=== PATIENT | male | born 1940 | race Caucasian/White ===

== ENCOUNTER 2017-02-14 12:54 | Inpatient (IN) | payer MEDICARE ==
[2017-02-14] MEDS ORDERED: SODIUM CHLORIDE 0.9% 1,000 ML IV STA (13:57)
[2017-02-14] MEDS ORDERED: ACETAMINOPHEN TAB 500 MG TAB PO STA (14:27)
[2017-02-14] MEDS ORDERED: IBUPROFEN 600 MG TAB PO STA (14:27)
--- NOTE | 2017-02-14 14:27 | ED ---
General Adult HPI - General Chief complaint: Weakness Stated complaint: WEAKNESS Time Seen by Provider: 02/14/17 13:04 Source: patient, RN notes reviewed, old records reviewed Mode of arrival: EMS Limitations: no limitations - History of Present Illness Initial comments: This is a 76-year-old male here for evaluation of weakness. Patient going to multiple different tests for evaluation of neurological studies including try to rule out Parkinson's and different brain abnormalities. Vision did have a little weakness yesterday but today with diffuse generalized weakness unable to get out of bed. - Related Data Home Medications Medication Instructions Recorded Confirmed Atorvastatin [Lipitor] 40 mg PO HS 10/10/16 02/14/17 Cholecalciferol [Vitamin D3] 2,000 unit PO DAILY 10/10/16 02/14/17 Levothyroxine Sodium [Synthroid] 150 mcg PO DAILY 10/10/16 02/14/17 [place] Port-3 Fatty Acids/Fish Oil [Fish 1 cap PO DAILY 10/10/16 02/14/17 Oil 1,000 mg Softgel] Tamsulosin HCl [Flomax] 0.4 mg PO DAILY 10/10/16 02/14/17 traZODone HCL 150 mg PO HS 10/10/16 02/14/17 Carbidopa/Levodopa [Sinemet 25-100 1 tab PO TID 02/14/17 02/14/17 mg] Insulin Aspart [NovoLOG] 8 unit SQ DAILY 02/14/17 02/14/17 Insulin Aspart [NovoLOG] 10 unit SQ BID 02/14/17 02/14/17 Insulin Degludec [Tresiba 32 unit SQ HS 02/14/17 02/14/17 Flextouch U-200] LORazepam [Ativan] 1 mg PO DAILY PRN 02/14/17 02/14/17 Losartan [Cozaar] 25 mg PO DAILY 02/14/17 02/14/17 Melatonin 3 mg PO HS 02/14/17 02/14/17 Previous Rx's Medication Instructions Recorded Aspirin 325 mg PO DAILY #30 tab 10/16/16 Metoprolol Succinate (ER) [Toprol 25 mg PO DAILY #30 tab.er.24h 10/16/16 XL] Allergies Allergy/AdvReac Type Severity Reaction Status Date / Time miconazole Allergy Rash/Hives Verified 02/14/17 14:35 [From Neosporin AF] scallops Allergy Nausea & Verified 02/14/17 14:35 Vomiting & Diarrhea Review of Systems ROS Statement: Those systems with pertinent positive or pertinent negative responses have been documented in the HPI. ROS Other: All systems not noted in ROS Statement are negative. Past Medical History Past Medical History: Chest Pain / Angina, Heart Failure, Dementia, Hyperlipidemia, Hypertension Additional Past Medical History / Comment(s): [place] in 1992, bilat hip fx's, carotid stenosis(had sx), STATED HAD BOTH FLU AND PNE VACCCINE -NOT SURE OF DATES Last Myocardial Infarction Date:: 1992 History of Any Multi-Drug Resistant Organisms: None Reported Past Surgical History: Orthopedic Surgery Additional Past Surgical History / Comment(s): LT CAROTID ENDARTERECTOMY Past Anesthesia/Blood Transfusion Reactions: Previous Problems w/ Anesthesia Additional Past Anesthesia/Blood Transfusion Reaction / Comment(s): AFTER AA WAS A BIT COMBATATIVE/CONFUSED Past Psychological History: No Psychological Hx Reported Smoking Status: Former smoker Past Alcohol Use History: Occasional Additional Past Alcohol Use History / Comment(s): QUIT [id number] Past Drug Use History: None Reported - Past Family History Father Family Medical History: Myocardial Infarction ([place]) Mother Family Medical History: Dementia General Exam Limitations: no limitations General appearance: alert, in no apparent distress Head exam: Present: atraumatic, normocephalic, normal inspection Eye exam: Present: normal appearance, PERRL, EOMI. Absent: scleral icterus, conjunctival injection, periorbital swelling ENT exam: Present: normal exam, mucous membranes moist Neck exam: Present: normal inspection. Absent: tenderness, meningismus, lymphadenopathy Respiratory exam: Present: normal lung sounds bilaterally. Absent: respiratory distress, wheezes, rales, rhonchi, stridor Cardiovascular Exam: Present: regular rate, normal rhythm, normal heart sounds. Absent: systolic murmur, diastolic murmur, rubs, gallop, clicks GI/Abdominal exam: Present: soft, normal bowel sounds. Absent: distended, tenderness, guarding, rebound, rigid Extremities exam: Present: normal inspection, full ROM, normal capillary refill. Absent: tenderness, pedal edema, joint swelling, calf tenderness Back exam: Present: normal inspection Neurological exam: Present: alert, oriented X3, CN II-XII intact Psychiatric exam: Present: normal affect, normal mood Skin exam: Present: warm, dry, intact, normal color. Absent: rash Course Vital Signs 02/14/17 02/14/17 13:01 15:11 Temperature 100.3 F H Pulse Rate 85 76 Respiratory 20 18 Rate Blood Pressure 129/56 115/68 O2 Sat by Pulse 95 97 Oximetry - Reevaluation(s) Reevaluation #1: 02/14/17 15:58 Patient showing no significant clinical improvement at this point EKG Findings - EKG Comments: EKG Findings:: EKG shows sinus rhythm rate of 89, CO 182, QRS 130, QTC 457 Medical Decision Making - Medical Decision Making Serzone L yearly have evaluation of weakness, inability and related. Patient does have uterine fever, patient be admitted for fever control, rehydration and treatment of urinary tract infection - Lab Data Result diagrams: 02/14/17 14:27 02/14/17 14:27 Lab Results 02/14/17 02/14/17 02/14/17 Range/Units 13:57 13:57 14:27 WBC (3.8-10.6) k/uL RBC (4.30-5.90) m/uL Hgb (13.0-17.5) gm/dL Hct (39.0-53.0) % MCV (80.0-100.0) fL MCH (25.0-35.0) pg MCHC (31.0-37.0) g/dL RDW (11.5-15.5) % Plt Count (150-450) k/uL Neutrophils % % Lymphocytes % % Monocytes % % Eosinophils % % Basophils % % Neutrophils # (1.3-7.7) k/uL Lymphocytes # (1.0-4.8) k/uL Monocytes # (0-1.0) k/uL Eosinophils # (0-0.7) k/uL Basophils # (0-0.2) k/uL PT (9.0-12.0) sec INR (<1.1) APTT (22.0-30.0) sec Sodium (137-145) mmol/L Potassium (3.5-5.1) mmol/L Chloride (98-107) mmol/L Carbon Dioxide (22-30) mmol/L Anion Gap mmol/L BUN (9-20) mg/dL Creatinine (0.66-1.25) mg/dL Est GFR (MDRD) Af Amer (>60 ml/min/1.73 sqM) Est GFR (MDRD) Non-Af (>60 ml/min/1.73 sqM) Glucose (74-99) mg/dL Calcium (8.4-10.2) mg/dL Phosphorus (2.5-4.5) mg/dL Magnesium (1.6-2.3) mg/dL Total Bilirubin (0.2-1.3) mg/dL AST (17-59) U/L ALT (21-72) U/L Alkaline Phosphatase (38-126) U/L Total Creatine Kinase 33 L (55-170) U/L CK-MB (CK-2) 0.3 (0.0-2.4) ng/mL CK-MB (CK-2) Rel Index 0.9 Troponin I <0.012 (0.000-0.034) ng/mL Total Protein (6.3-8.2) g/dL Albumin (3.5-5.0) g/dL Urine Color Yellow Urine Appearance Cloudy (Clear) Urine pH 5.5 (5.0-8.0) Ur Specific [place] 1.017 (1.001-1.035) Urine Protein 1+ H (Negative) Urine Glucose (UA) Negative (Negative) Urine Ketones Negative (Negative) Urine Blood Moderate H (Negative) Urine Nitrite Negative (Negative) Urine Bilirubin Negative (Negative) Urine Urobilinogen <2.0 (<2.0) mg/dL Ur Leukocyte Esterase Large H (Negative) Urine RBC 32 H (0-5) /hpf Urine WBC 106 H (0-5) /hpf Urine WBC Clumps Many H (None) /hpf Urine Mucus Rare H (None) /hpf Influenza Type A RNA Not Detected (Not Detectd) Influenza Type B (PCR) Not Detected (Not Detectd) 02/14/17 02/14/17 02/14/17 Range/Units 14:27 14:27 14:27 WBC 12.7 H (3.8-10.6) k/uL RBC 4.38 (4.30-5.90) m/uL Hgb 13.4 (13.0-17.5) gm/dL Hct 39.4 (39.0-53.0) % MCV 89.9 (80.0-100.0) fL MCH 30.6 (25.0-35.0) pg MCHC 34.0 (31.0-37.0) g/dL RDW 13.0 (11.5-15.5) % Plt Count 182 (150-450) k/uL Neutrophils % 87 % Lymphocytes % 5 % Monocytes % 6 % Eosinophils % 1 % Basophils % 0 % Neutrophils # 11.0 H (1.3-7.7) k/uL Lymphocytes # 0.7 L (1.0-4.8) k/uL Monocytes # 0.8 (0-1.0) k/uL Eosinophils # 0.1 (0-0.7) k/uL Basophils # 0.0 (0-0.2) k/uL PT 11.8 (9.0-12.0) sec INR 1.2 (<1.1) APTT 25.8 (22.0-30.0) sec Sodium 135 L (137-145) mmol/L Potassium 4.2 (3.5-5.1) mmol/L Chloride 97 L (98-107) mmol/L Carbon Dioxide 27 (22-30) mmol/L Anion Gap 11 mmol/L BUN 15 (9-20) mg/dL Creatinine 0.98 (0.66-1.25) mg/dL Est GFR (MDRD) Af Amer >60 (>60 ml/min/1.73 sqM) Est GFR (MDRD) Non-Af >60 (>60 ml/min/1.73 sqM) Glucose 165 H (74-99) mg/dL Calcium 9.3 (8.4-10.2) mg/dL Phosphorus 2.9 (2.5-4.5) mg/dL Magnesium 1.9 (1.6-2.3) mg/dL Total Bilirubin 1.4 H (0.2-1.3) mg/dL AST 18 (17-59) U/L ALT 29 (21-72) U/L Alkaline Phosphatase 83 (38-126) U/L Total Creatine Kinase (55-170) U/L CK-MB (CK-2) (0.0-2.4) ng/mL CK-MB (CK-2) Rel Index Troponin I (0.000-0.034) ng/mL Total Protein 7.0 (6.3-8.2) g/dL Albumin 3.6 (3.5-5.0) g/dL Urine Color Urine Appearance (Clear) Urine pH (5.0-8.0) Ur Specific [place] (1.001-1.035) Urine Protein (Negative) Urine Glucose (UA) (Negative) Urine Ketones (Negative) Urine Blood (Negative) Urine Nitrite (Negative) Urine Bilirubin (Negative) Urine Urobilinogen (<2.0) mg/dL Ur Leukocyte Esterase (Negative) Urine RBC (0-5) /hpf Urine WBC (0-5) /hpf Urine WBC Clumps (None) /hpf Urine Mucus (None) /hpf Influenza Type A RNA (Not Detectd) Influenza Type B (PCR) (Not Detectd) - Radiology Data Radiology results: report reviewed (Chest x-ray is negative for acute disease), image reviewed Disposition Clinical Impression: Ataxia, Dehydration, Weakness, UTI (urinary tract infection) Disposition: ADMITTED IP TO THIS [facility] Condition: Fair Referrals: Lizzie Reynoso DO [Primary Care Provider] - 1-2 days
[2017-02-14 14:42] LABS: Basophils % (A) 0 %; CH 30.6; CHCM 34.2; Eosinophils # (A) 0.1 k/uL (0-0.7); Eosinophils % (A) 1 %; HCT 39.4 % (39.0-53.0); HDW 2.59; HGB 13.4 gm/dL (13.0-17.5); Luc # (Auto) 0.19; Luc % (Auto) 2; Lymphocytes # (A) 0.7 k/uL (1.0-4.8); Lymphocytes % (A) 5 %; MCH 30.6 pg (25.0-35.0); MCV 89.9 fL (80.0-100.0); Mean Platelet Volume 7.5; Monocytes # (A) 0.8 k/uL (0-1.0); Monocytes % (A) 6 %; Neutrophils % (A) 87 %; RBC 4.38 m/uL (4.30-5.90); WBC 12.7 k/uL (3.8-10.6); WBC (Perox) 12.77
[2017-02-14 14:49] LABS: ALT 29 U/L (21-72); AST 18 U/L (17-59); Alkaline Phosphatase 83 U/L (38-126); Anion Gap 11 mmol/L; Blood Urea Nitrogen 15 mg/dL (9-20); Calcium 9.3 mg/dL (8.4-10.2); Carbon Dioxide 27 mmol/L (22-30); Chloride 97 mmol/L (98-107); Glucose 165 mg/dL (74-99); INR 1.2 (<1.1); Magnesium 1.9 mg/dL (1.6-2.3); Non-African American GFR(MDRD) >60 (>60 ml/min/1.73 sqM); Partial Thromboplastin Time 25.8 sec (22.0-30.0); Phosphorous 2.9 mg/dL (2.5-4.5); Potassium 4.2 mmol/L (3.5-5.1); Prothrombin Time 11.8 sec (9.0-12.0); Sodium 135 mmol/L (137-145); Total Bilirubin 1.4 mg/dL (0.2-1.3)
[2017-02-14 15:07] LABS: Creatine Kinase 33 U/L (55-170)
[2017-02-14 15:08] LABS: Appearance,Urine Cloudy (Clear); Bilirubin,Urine Negative (Negative); Glucose,Urine (UA) Negative (Negative); Ketones,Urine Negative (Negative); Leukocyte Esterase,Urine Large (Negative); Mucus,Urine Rare /hpf; Nitrite,Urine Negative (Negative); PH, Urine 5.5 (5.0-8.0); Particle Count 22732; Protein,Urine 1+ (Negative); RBC,Urine 32 /hpf (0-5); Specific Gravity,Urine 1.017 (1.001-1.035); UA Billing (MACRO vs. MICRO) MICRO; Urobilinogen,Urine <2.0 mg/dL (<2.0); WBC,Urine 106 /hpf (0-5)
[2017-02-14 15:20] LABS: Creatine Kinase MB 0.3 ng/mL (0.0-2.4); Troponin I <0.012 ng/mL (0.000-0.034)
--- NOTE | 2017-02-14 15:28 | XR ---
EXAMINATION TYPE: XR chest 2V DATE OF EXAM: 02/14/2017 3:06 PM COMPARISON: 10/29/2016 and 10/10/2016. HISTORY: 76-year-old male with weakness TECHNIQUE: AP and lateral views FINDINGS: The heart is borderline enlarged. Mild elongation of the thoracic aorta. Diffuse interstitial densiti es have a medium to fine reticular appearance. No significant pleural effusion. IMPRESSION: There appear to be underlying interstitial changes slightly increased from 10/10/2016. Correlate for possible etiologies including bronchitis, pulmonary vascular congestion, uncontrolled asthma, atypica l pneumonias, or interstitial pneumonitis.
[2017-02-14] MEDS ORDERED: ACETAMINOPHEN TAB 325 MG TAB PO PRN (15:58)
[2017-02-14] MEDS ORDERED: SODIUM CHLORIDE 0.9% 1,000 ML IV ONE (15:58)
[2017-02-14] MEDS: IBUPROFEN 600 MG TAB PO SCH ×2 (17:15→20:26)
[2017-02-14] MEDS: MELATONIN 3 MG TABLET PO SCH (20:25)
[2017-02-14] MEDS: ATORVASTATIN 40 MG TAB PO SCH (20:25)
[2017-02-14] MEDS: traZODone HCL 50 MG TAB PO SCH (20:25)
[2017-02-14] MEDS: CARBIDOPA-LEVODOPA 25-100 MG 1 EACH TAB PO SCH (20:26)
[2017-02-14 21:07] LABS: Glucose,Whole Blood 184 mg/dL (75-99)
[2017-02-14] MEDS ORDERED: ALPRAZolam 0.25 MG TAB PO PRN (21:23)
[2017-02-14] MEDS ORDERED: INSULIN DEGLUDEC 32 UNIT SQ SCH (21:30)
[2017-02-14] MEDS: INSULIN LISPRO (humaLOG) 300 UNIT/3 ML VIAL SQ SCH (22:16)
[2017-02-15] MEDS: LEVOTHYROXINE 75 MCG TAB PO SCH (05:55)
[2017-02-15 07:37] LABS: Glucose,Whole Blood 132 mg/dL (75-99)
[2017-02-15] MEDS: PANTOPRAZOLE 40 MG TABLET PO SCH (08:30)
[2017-02-15] MEDS: LOSARTAN 25 MG TAB PO SCH (08:30)
[2017-02-15] MEDS: TAMSULOSIN 0.4 MG CAP.ER.24H PO SCH (08:30)
[2017-02-15] MEDS: ENOXAPARIN 40 MG/0.4 ML SYRINGE SQ SCH (08:30)
[2017-02-15] MEDS: CARBIDOPA-LEVODOPA 25-100 MG 1 EACH TAB PO SCH ×3 (08:30→20:21)
[2017-02-15] MEDS: METOPROLOL SUCCINATE (ER) 25 MG TAB.ER.24H PO SCH (08:30)
[2017-02-15] MEDS: INSULIN LISPRO (humaLOG) 300 UNIT/3 ML VIAL SQ SCH ×7 (08:30→21:15)
[2017-02-15] MEDS: ASPIRIN 325 MG TAB PO SCH (08:30)
[2017-02-15] MEDS: CHOLECALCIFEROL 1,000 UNIT TAB PO SCH (08:31)
[2017-02-15] MEDS: HYDROcodone/APAP 5-325MG 1 EACH TAB PO PRN (08:34)
[2017-02-15 08:46] LABS: Basophils % (A) 0 %; CH 30.5; CHCM 33.3; Eosinophils % (A) 0 %; HCT 37.5 % (39.0-53.0); HDW 2.57; Luc # (Auto) 0.17; Luc % (Auto) 2; Lymphocytes # (A) 0.6 k/uL (1.0-4.8); Lymphocytes % (A) 6 %; MCH 31.7 pg (25.0-35.0); MCHC 34.5 g/dL (31.0-37.0); MCV 91.9 fL (80.0-100.0); Mean Platelet Volume 7.6; Monocytes # (A) 0.5 k/uL (0-1.0); Monocytes % (A) 5 %; Neutrophils # (A) 8.8 k/uL (1.3-7.7); Neutrophils % (A) 87 %; RBC 4.08 m/uL (4.30-5.90); RDW 12.9 % (11.5-15.5); WBC 10.1 k/uL (3.8-10.6); WBC (Perox) 11.05
--- NOTE | 2017-02-15 08:54 | HP ---
DATE OF ADMISSION: DATE OF SERVICE: 02/14/2017 . The chief complaint is generalized tiredness and weakness. HISTORY OF PRESENT ILLNESS: This 76-year-old gentleman with the past medical history of CHF, CVA, TIA diabetes mellitus type 2, hypertension, hyperlipidemia, history of myocardial infarction, DJD, history of pneumonia, history of appendectomy, was recently admitted with CHF acute exacerbation to [facility] end of last year. The patient apparently was significantly weak and was sent to rehab where the patient spent about almost a month at [facility]. Apparently, patient became progressively weak and was being evaluated for multiple etiologies. Patient uses a walker but because patient came to [facility], was found to have UTI and admitted for further evaluation and treatment. There is no history of fever, chills or rigors. No history of headache, loss of consciousness or seizures at this time. PAST MEDICAL HISTORY: History of CHF, history of CVA, TIA, diabetes mellitus type 2, hypertension, hyperlipidemia, history of myocardial infarction, DJD, pneumonia, prostate disorder. Medications prior to admission include home medications are: 1. Flomax 0.4 daily. 2. Ativan 1 mg daily p.r.n. 3. Insulin Degludec, Tresiba 32 units subQ q.h.s. 4. Melatonin 3 mg q.h.s. 5. Sinemet 25-100 p.o. t.i.d. 6. Cozaar 25 mg p.o. daily. 7. NovoLog 8 units daily and 10 units b.i.d. 8. Trazodone 150 mg q.h.s. 9. Fish-oil 1 capsule daily. 10. Toprol-XL 25 mg daily, 11. Synthroid 150 mcg p.o. daily. 12. Vitamin D3 two thousand units p.o. daily. 13. Lipitor 40 mg q.h.s. 14. Aspirin 325 mg daily. ALLERGIES: MICONAZOLE, SCALLOPS. FAMILY HISTORY: History of myocardial infarction in the family. SOCIAL HISTORY: Previous history of smoking, occasional alcohol intake. REVIEW OF SYSTEMS: ENT: No diminishing hearing or diminished vision. CARDIOVASCULAR; There is no angina or palpitations. RESPIRATORY: As mentioned earlier. GI: No nausea. : No dysuria. NERVOUS SYSTEM: No numbness or weakness. ALLERGY/IMMUNOLOGY: No asthma or hayfever. MUSCULOSKELETAL: As mentioned earlier. HEMATOLOGY: No history of anemia. ENDOCRINE: As mentioned earlier. CONSTITUTIONAL: As mentioned earlier. DERMATOLOGY: Negative. RHEUMATOLOGY: Negative. PSYCHIATRY: As mentioned earlier. PHYSICAL EXAMINATION: Patient is alert and oriented x3. Pulse is 74, blood pressure 103/52 respiratory rate 16, temperature 98.3, pulse ox 94% on room air. Diffusely weak and some wasting also present. HEENT: Conjunctivae normal, oral mucosa moist. NECK: No jugular venous distention. No carotid bruits. No lymph node enlargement. CARDIOVASCULAR SYSTEM: S1, S2, muffled. No S3, no S4. RESPIRATORY: Breath sounds diminished at the bases. A few scattered rhonchi, no crackles. Abdomen is soft, nontender. No mass palpable. EXTREMITIES: Legs no edema. Nervous system: Higher function after that in neck, axillae or groin. SKIN: No ulcer, rash or bleeding. LABS: At this time WBC is 12.7, hemoglobin is 13.4. Sodium is 135, potassium 4.2. ASSESSMENT: 1. Possible urinary tract infection with sepsis. 2. Generalized tiredness and weakness. 3. Generalized asthenia. 4. Increased WBC. 5. Hyponatremia. 6. Increased random blood sugar. 7. Increased total bilirubin. 8. History of congestive heart failure with chronic systolic dysfunction ejection fraction 35% to 40%. 9. History of cerebrovascular accident, transient ischemic attack. 10. Diabetes mellitus type 2. 11. Hypertension, essential. 12. Hyperlipidemia. 13. History of myocardial infarction. 14. History of degenerative joint disease. 15. History of pneumonia. 16. History of fractured pelvis. 17. History of carotid stenosis. 18. History of appendectomy. 19. History of left carotid endarterectomy. 20. Nicotine dependence. 21. Benign prostatic hypertrophy. 22. History of diarrhea, antibiotic induced. 23. History of chest pain, angina. 24. FULL CODE. RECOMMENDATION: In this 76-year-old gentleman who presented with multiple complex medical issues, will monitor the patient closely. Continue with the current medications and continue with the symptomatic treatment. Will initiate broad-spectrum IV antibiotics. Follow cultures. PT, OT evaluation. DVT prophylaxis and symptomatic treatment. Otherwise, resume the home medications, vitamin supplementations. Prognosis guarded because of multiple complex medical issues. Further recommendations to follow. Monitor blood sugars closely. Copy of this dictation will be forwarded to Dr. Reynoso who is the primary physician.
[2017-02-15] MEDS ORDERED: NON-FORMULARY DRUG (Omega-3 Fatty Acids/Fish Oil [Fish Oil 1,000 Mg Softgel] 1 CAP) PO SCH (09:00)
[2017-02-15 09:02] LABS: Anion Gap 9 mmol/L; Blood Urea Nitrogen 13 mg/dL (9-20); Calcium 8.8 mg/dL (8.4-10.2); Carbon Dioxide 29 mmol/L (22-30); Chloride 100 mmol/L (98-107); Glucose 130 mg/dL (74-99); Non-African American GFR(MDRD) >60 (>60 ml/min/1.73 sqM); Potassium 4.1 mmol/L (3.5-5.1); Sodium 138 mmol/L (137-145)
[2017-02-15] MEDS ORDERED: FOLIC ACID 1 MG TAB PO SCH (12:00)
[2017-02-15 12:15] LABS: Glucose,Whole Blood 218 mg/dL (75-99)
[2017-02-15] MEDS: MULTIVITAMINS, THERA 1 EACH TAB PO SCH (13:31)
[2017-02-15] MEDS: THIAMINE 100 MG TAB PO SCH (13:31)
[2017-02-15 17:17] LABS: Glucose,Whole Blood 171 mg/dL (75-99)
[2017-02-15] MEDS: ATORVASTATIN 40 MG TAB PO SCH (20:19)
[2017-02-15] MEDS: INSULIN GLARGINE 100 UNIT/ML 10 ML VIAL SQ SCH (20:19)
[2017-02-15] MEDS: MELATONIN 3 MG TABLET PO SCH (20:20)
[2017-02-15] MEDS: traZODone HCL 50 MG TAB PO SCH (20:20)
[2017-02-15 21:15] LABS: Glucose,Whole Blood 111 mg/dL (75-99)
[2017-02-16] MEDS: LEVOTHYROXINE 75 MCG TAB PO SCH (05:21)
[2017-02-16] MEDS: HYDROcodone/APAP 5-325MG 1 EACH TAB PO PRN (05:21)
--- NOTE | 2017-02-16 06:39 | PN ---
DATE OF SERVICE: 02/15/2017 This 76-year-old gentleman who was admitted with UTI with sepsis with generalized weakness and tiredness being closely monitored. No chest or palpitation. No fever. Patient is on broad-spectrum IV antibiotics. Patient is still running some mild fever. PAST MEDICAL HISTORY: Reviewed. REVIEW OF SYSTEMS: CARDIOVASCULAR: No angina or palpitations. RESPIRATORY: As mentioned earlier. GI: As mentioned earlier. GENITOURINARY: No dysuria. NERVOUS SYSTEM: No numbness or weakness. Current medications are reviewed and include: 1. Tylenol 650 q.6 p.r.n. 2. [place] 5 mg q.6 p.r.n. 3. Xanax 0.25 t.i.d. 4. Aspirin 325 mg daily. 5. Lipitor 40 mg q.h.s. 6. Sinemet 25/100 one p.o. t.i.d. 7. Rocephin 1 gram IV daily. 8. Vitamin D3. 9. Insulin Lantus 32 subcu q.h.s. 10. Humalog. 11. Cozaar. 12. Melatonin. 13. Multivitamin. 14. Protonix. 15. Flomax. 16. Vitamin B1. 17. Desyrel. PHYSICAL EXAMINATION: The patient is alert and oriented x3. Pulse is 95, blood pressure 124/64, respirations 16, temperature 100.8, pulse ox 94% on room air. HEENT: Conjunctivae normal. NECK: No jugular venous distention. CARDIOVASCULAR: S1 and S2, muffled. RESPIRATORY: Breath sounds diminished at the bases. A few scattered rhonchi and crackles. ABDOMEN: Soft, nontender. LEGS: No edema, no swelling. NERVOUS SYSTEM: No focal deficits. LABS: WBC 10.1, hemoglobin 13. Accu-Cheks are 130. ASSESSMENT: 1. Possible urinary tract infection with sepsis. 2. Generalized tiredness and weakness. 3. Generalized asthenia. 4. Increased WBC. 5. Hyponatremia. 6. Increased random blood sugar. 7. Increased total bilirubin. 8. History of congestive heart failure with chronic systolic dysfunction, ejection fraction 35% to 40%. 9. History of cerebrovascular accident, transient ischemic attack. 10. Diabetes mellitus type 2. 11. Hypertension, essential. 12. Hyperlipidemia. 13. History of myocardial infarction. 14. History of degenerative joint disease. 15. History of pneumonia. 16. History of fractured pelvis. 17. History of carotid stenosis. 18. History of appendectomy. 19. History of carotid endarterectomy. 20. Nicotine dependence history. 21. History of benign prostatic hypertrophy. 22. History of diarrhea, antibiotic induced. 23. History of chest pain, angina. 24. FULL CODE. RECOMMENDATIONS AND DISCUSSION: In this 76-year-old gentleman who presented with multiple complex medical issues, we will monitor the patient closely. Continue the current medications. Continue symptomatic treatment. Otherwise, I would continue with broad-spectrum IV antibiotics. Guarded prognosis because of multiple complex medical issues and further recommendations to follow. See orders for details.
[2017-02-16 07:52] LABS: Glucose,Whole Blood 126 mg/dL (75-99)
[2017-02-16] MEDS: CARBIDOPA-LEVODOPA 25-100 MG 1 EACH TAB PO SCH ×3 (08:05→20:55)
[2017-02-16] MEDS: ENOXAPARIN 40 MG/0.4 ML SYRINGE SQ SCH (08:05)
[2017-02-16] MEDS: ASPIRIN 325 MG TAB PO SCH (08:05)
[2017-02-16] MEDS: TAMSULOSIN 0.4 MG CAP.ER.24H PO SCH (08:06)
[2017-02-16] MEDS: INSULIN LISPRO (humaLOG) 300 UNIT/3 ML VIAL SQ SCH ×7 (08:06→20:55)
[2017-02-16] MEDS: METOPROLOL SUCCINATE (ER) 25 MG TAB.ER.24H PO SCH (08:06)
[2017-02-16] MEDS: CHOLECALCIFEROL 1,000 UNIT TAB PO SCH (08:06)
[2017-02-16] MEDS: PANTOPRAZOLE 40 MG TABLET PO SCH (08:06)
[2017-02-16] MEDS: LOSARTAN 25 MG TAB PO SCH (08:06)
[2017-02-16 09:13] LABS: Basophils % (A) 0 %; CH 31.1; CHCM 33.1; Eosinophils # (A) 0.1 k/uL (0-0.7); Eosinophils % (A) 1 %; HCT 38.9 % (39.0-53.0); HDW 2.49; HGB 12.6 gm/dL (13.0-17.5); Luc # (Auto) 0.18; Luc % (Auto) 2; Lymphocytes # (A) 0.9 k/uL (1.0-4.8); Lymphocytes % (A) 10 %; MCH 30.5 pg (25.0-35.0); MCHC 32.3 g/dL (31.0-37.0); MCV 94.4 fL (80.0-100.0); Mean Platelet Volume 8.1; Monocytes # (A) 0.6 k/uL (0-1.0); Monocytes % (A) 7 %; Neutrophils # (A) 7.1 k/uL (1.3-7.7); Neutrophils % (A) 80 %; RBC 4.12 m/uL (4.30-5.90); RDW 13.3 % (11.5-15.5); WBC 8.9 k/uL (3.8-10.6); WBC (Perox) 9.09
[2017-02-16 09:39] LABS: Anion Gap 9 mmol/L; Blood Urea Nitrogen 17 mg/dL (9-20); Calcium 8.9 mg/dL (8.4-10.2); Carbon Dioxide 28 mmol/L (22-30); Chloride 100 mmol/L (98-107); Glucose 124 mg/dL (74-99); Non-African American GFR(MDRD) >60 (>60 ml/min/1.73 sqM); Potassium 4.3 mmol/L (3.5-5.1); Sodium 137 mmol/L (137-145)
[2017-02-16 12:15] LABS: Glucose,Whole Blood 114 mg/dL (75-99)
[2017-02-16] MEDS: MULTIVITAMINS, THERA 1 EACH TAB PO SCH (12:40)
[2017-02-16] MEDS: THIAMINE 100 MG TAB PO SCH (12:40)
[2017-02-16 17:07] LABS: Glucose,Whole Blood 73 mg/dL (75-99)
--- NOTE | 2017-02-16 19:14 | PN ---
DATE OF SERVICE: 02/16/2017 This 76-year-old gentleman who was admitted with UTI with sepsis being closely monitored. The patient having generalized tiredness and weakness. No fever. Occasional cough. On exam, alert and oriented times three. Pulse 68, blood pressure 106/64, respiration 20, temperature 98.1, pulse ox 98% on room air. HEENT: Conjunctivae normal. NECK: No jugular venous distention. CARDIOVASCULAR: S1, S2 muffled. RESPIRATORY: Breath sounds diminished at the bases. A few scattered rhonchi and crackles. Expiratory wheezing present. ABDOMEN: Soft, nontender. LEGS: No edema. No swelling. CENTRAL NERVOUS SYSTEM: No focal deficits. LABORATORY DATA: WBC 8.2, hemoglobin 12.6, ASSESSMENT: 1. Urinary tract infection with sepsis, present on admission. 2. Generalized tiredness and weakness. 3. Generalized aesthenia. 4. Decreased WBC. 5. Hyponatremia. 6. Increased random blood sugar. 7. Increased total bilirubin. 8. History of congestive heart failure with chronic systolic dysfunction. Ejection fraction 35 to 40%. 9. History of cerebrovascular accident/ transient ischemic attack. 10. Type 2 diabetes mellitus. 11. Hypertension, essential. 12. Hyperlipidemia. 13. History of myocardial infarction. 14. History of degenerative joint disease . 15. History of pneumonia. 16. History of fractured pelvis. 17. History of carotid stenosis. 18. History of appendectomy. 19. History of carotid endarterectomy. 20. Nicotine dependence history. 21. History of benign prostatic hypertrophy. 22. History of diarrhea, antibiotic induced. 23. History of chest pain, angina. 24. FULL CODE. RECOMMENDATIONS AND DISCUSSION: Recommend to continue current medications, continue with monitoring, symptomatic treatment. At this time, I would recommend continue with antibiotics. PT, OT evaluation. Otherwise, continue to monitor. Guarded prognosis because of multiple complex medical issues. Further recommendations to follow. MTDD
[2017-02-16] MEDS: MELATONIN 3 MG TABLET PO SCH (20:55)
[2017-02-16] MEDS: traZODone HCL 50 MG TAB PO SCH (20:55)
[2017-02-16] MEDS: ATORVASTATIN 40 MG TAB PO SCH (20:55)
[2017-02-16] MEDS: INSULIN GLARGINE 100 UNIT/ML 10 ML VIAL SQ SCH (20:56)
[2017-02-16 20:58] LABS: Glucose,Whole Blood 88 mg/dL (75-99)
[2017-02-17] MEDS: LEVOTHYROXINE 75 MCG TAB PO SCH (06:19)
[2017-02-17] MEDS: INSULIN LISPRO (humaLOG) 300 UNIT/3 ML VIAL SQ SCH ×4 (07:39→12:37)
[2017-02-17 07:43] LABS: Glucose,Whole Blood 134 mg/dL (75-99)
[2017-02-17 08:03] VITALS: BP 127/70; PULSE 68; RESP 19; TEMP 97.1
[2017-02-17] MEDS: ENOXAPARIN 40 MG/0.4 ML SYRINGE SQ SCH (08:05)
[2017-02-17] MEDS: CARBIDOPA-LEVODOPA 25-100 MG 1 EACH TAB PO SCH (08:05)
[2017-02-17] MEDS: METOPROLOL SUCCINATE (ER) 25 MG TAB.ER.24H PO SCH (08:05)
[2017-02-17] MEDS: CHOLECALCIFEROL 1,000 UNIT TAB PO SCH (08:05)
[2017-02-17] MEDS: TAMSULOSIN 0.4 MG CAP.ER.24H PO SCH (08:05)
[2017-02-17] MEDS: ASPIRIN 325 MG TAB PO SCH (08:06)
[2017-02-17] MEDS: LOSARTAN 25 MG TAB PO SCH (08:06)
[2017-02-17] MEDS ORDERED: PATIENT'S OWN MED (Linaclotide [Linzess] 290 MCG) PO SCH (09:00)
[2017-02-17 09:19] LABS: Basophils % (A) 1 %; CHCM 33.6; Eosinophils # (A) 0.1 k/uL (0-0.7); Eosinophils % (A) 2 %; HCT 37.3 % (39.0-53.0); HDW 2.54; HGB 12.4 gm/dL (13.0-17.5); Luc # (Auto) 0.19; Luc % (Auto) 4; Lymphocytes # (A) 0.8 k/uL (1.0-4.8); Lymphocytes % (A) 16 %; MCH 30.7 pg (25.0-35.0); MCHC 33.1 g/dL (31.0-37.0); MCV 92.6 fL (80.0-100.0); Mean Platelet Volume 7.6; Monocytes # (A) 0.4 k/uL (0-1.0); Monocytes % (A) 8 %; Neutrophils # (A) 3.6 k/uL (1.3-7.7); Neutrophils % (A) 70 %; RBC 4.03 m/uL (4.30-5.90); RDW 13.1 % (11.5-15.5); WBC 5.1 k/uL (3.8-10.6); WBC (Perox) 5.25
[2017-02-17 09:54] LABS: Anion Gap 9 mmol/L; Blood Urea Nitrogen 16 mg/dL (9-20); Calcium 8.9 mg/dL (8.4-10.2); Carbon Dioxide 30 mmol/L (22-30); Chloride 98 mmol/L (98-107); Glucose 159 mg/dL (74-99); Non-African American GFR(MDRD) >60 (>60 ml/min/1.73 sqM); Sodium 137 mmol/L (137-145)
[2017-02-17 12:16] LABS: Glucose,Whole Blood 157 mg/dL (75-99)
[2017-02-17] MEDS: MULTIVITAMINS, THERA 1 EACH TAB PO SCH (12:37)
[2017-02-17] MEDS: THIAMINE 100 MG TAB PO SCH (12:37)
--- NOTE | 2017-02-18 15:18 | DS ---
DATE OF ADMISSION: 02/14/2017 DATE OF DISCHARGE: 02/17/2017 FINAL DIAGNOSIS(ES): 1. Urinary tract infection with sepsis, present on admission with Proteus. 2. Generalized tiredness and weakness. 3. Generalized asthenia. 4. Increased WBC. 5. Hyponatremia. 6. Increased random blood sugar. 7. Increased total bilirubin. 8. History of congestive heart failure, chronic systolic dysfunction, ejection fraction 35 to 40%. 9. History of cerebrovascular accident, transient ischemic attack. 10. Diabetes mellitus type 2. 11. Hypertension, essential. 12. Hyperlipidemia. 13. History of myocardial infarction. 14. History of degenerative joint disease. 15. History of pneumonia. 16. History of fractured pelvis. 17. History of carotid stenosis. 18. History of appendectomy. 19. History of carotid endarterectomy. 20. History of nicotine dependence. 21. History of benign prostatic hypertrophy. 22. History of diarrhea, antibiotic induced. 23. History of chest pain, angina. 24. FULL CODE. DISCHARGE DISPOSITION: The patient will be discharged in stable condition with guarded prognosis. The patient is extremely keen on going home. HISTORY OF PRESENT ILLNESS: This 76 -year-old gentleman with a past medical history of multiple medical problems admitted urinary tract infection and sepsis and generalized tiredness and weakness. The patient treated with antibiotics. Proteus grown from the culture. The patient is able to ambulate. The extremely keen on going home. On exam, alert and oriented x3 vitals are stable. CARDIOVASCULAR SYSTEM: S1, S2 muffled. Abdomen soft. CENTRAL NERVOUS SYSTEM: Mild diffuse weakness. DISCHARGE ADVICE AND MEDICATIONS: 1. Diet is cardiac. 2. Activity limited until follow-up. 3. Follow up with Dr. Reynoso in one to two days. 4. Home care is being arranged. 5. Otherwise, medications are Tylenol 650 q.6 p.r.n. 6. Aspirin 320 mg p.o. daily. 7. Lipitor 40 mg q.h.s. 8. Sinemet 25/100 p.o. t.i.d. 9. Ceftin 500 mg p.o. b.i.d. for 4 days. 10. Vitamin D3 2000 p.o. daily. 11. Folic acid 1 mg p.o. daily. 12. Novolog 10 units subcu b.i.d. 13. Novolin 8 units Subcu daily. 14. Insulin 32 units subcu q.h.s. 15. Ativan 1 mg p.o. daily. 16. Synthroid 150 mcg p.o. daily. 17. Linzess 290 micrograms p.o. daily. 18. Cozaar 25 mg p.o. daily. 19. Melatonin 3 mg p.o. q.h.s. 20. Toprol XL 25 mg p.o. daily. 21. Multivitamin 1 p.o. daily. 22. [place]-3 fatty acid 1 capsule p.o. daily. 23. Flomax 0.4 daily. 24. Thiamine 100 mg p.o. daily. 25. Trazodone 150 mg q.h.s. Once again, the patient will be discharged in stable condition with guarded prognosis. MTDD
== END 2017-02-17 15:12 | disposition home or self-care (01) | DRG 872 ==
LOC: EC 12:54 → 4MS4W 15:58
PROVIDERS: ADMIT Hospitalist; ATTEND Hospitalist
DX: A41.9 Sepsis, unspecified organism (principal); I50.22 Chronic systolic (congestive) heart failure; E87.1 Hypo-osmolality and hyponatremia; N39.0 Urinary tract infection, site not specified; E11.9 Type 2 diabetes mellitus without complications; I11.0 Hypertensive heart disease with heart failure; F03.90 Unspecified dementia, unspecified severity, without behavioral disturbance, psychotic disturbance, mood disturbance, and anxiety; E86.0 Dehydration; E78.5 Hyperlipidemia, unspecified; I25.2 Old myocardial infarction; N40.0 Benign prostatic hyperplasia without lower urinary tract symptoms; M19.90 Unspecified osteoarthritis, unspecified site; Z79.4 Long term (current) use of insulin; Z79.82 Long term (current) use of aspirin; Z79.899 Other long term (current) drug therapy; Z88.8 Allergy status to other drugs, medicaments and biological substances; Z87.891 Personal history of nicotine dependence; Z82.49 Family history of ischemic heart disease and other diseases of the circulatory system
CPT/HCPCS: 36415; 71020; 80048; 80053; 81001; 82550; 82553; 83036; 83735; 84100; 84484; 85025; 85610; 85730; 87040; 87077; 87086; 87186; 87502; 93005; 94760; 96361; 96365; 99285